=== PATIENT | female | born 1965 | race Caucasian/White ===

== ENCOUNTER → 2023-11-30 09:47 | Outpatient (REF) | payer OTHER, SELFPAY | LOC: HWRAD 09:47 | PROVIDERS: ATTENDING PHYSICIAN Internal Medicine Cardiovascular Disease; FAMILY PHYSICIAN Family Medicine | DX: R00.2 Palpitations (principal); E05.90 Thyrotoxicosis, unspecified without thyrotoxic crisis or storm | CPT/HCPCS: 76536 ==

== ENCOUNTER → 2023-12-12 09:01 | Outpatient (REF) | payer OTHER, SELFPAY | LOC: HWRCS 09:01 | PROVIDERS: ATTENDING PHYSICIAN Internal Medicine Cardiovascular Disease; FAMILY PHYSICIAN Family Medicine | DX: I47.10 Supraventricular tachycardia, unspecified (principal); R00.2 Palpitations; I34.0 Nonrheumatic mitral (valve) insufficiency | CPT/HCPCS: 93306 ==

== ENCOUNTER 2024-08-27 12:39 | Emergency (ER) | payer OTHER, SELFPAY ==
[2024-08-27 12:45] VITALS: BP 163/83
--- NOTE | 2024-08-27 12:49 | ED.GENMED ---
ED Provider Triage
<Darrel Galicia PA-C - Last Filed: 08/27/24 12:50>
-
Patient seen by provider in Triage?: Seen in Triage
Attestation: A medical screening examination has been initiated by a qualified medical provider. Based on the assessment performed at this time, it has been determined that an emergent medical condition may exist and the patient has been informed
that further medical evaluation and possible additional diagnostic testing may be needed.
HPI: 59-year-old female presents for evaluation of central chest pain that began at 9 AM today. Nonpleuritic and nonradiating. Feels lightheaded. Was seated at her desk at work when the symptoms began. No palliating or provoking symptoms. Has
never had similar pain. No family history of coronary disease, non-smoker, no history of hypertension or hyperlipidemia. Follows with [facility] cardiology for possible heart arrhythmia in the past
GENERAL: Alert , in no apparent distress
EYE: No visual abnormalities.
NECK: Trachea midline
ENT: No visible abnormalities.
LUNGS: No acute respiratory distress
NEUROLOGICAL: Alert and oriented
SKIN: Skin intact. No visible changes.
MUSCULOSKELETAL: Moving extremities normally
PSYCH: Normal and appropriate interaction.
This is a medical evaluation conducted in person to initiate diagnostic evaluation and provide initial therapeutics. Please see further documentation by the treating clinician.
History of Present Illness
<Darrel Galicia PA-C - Last Filed: 08/27/24 12:50>
General
Chief Complaint: Chest Pain
Time Seen by Provider: 08/27/24 13:38
<Dariel Rehman DO - Last Filed: 08/27/24 14:19>
General
Source: patient
Exam Limitations: none
History of Present Illness
History of Present Illness:
See MDM
Past History
<Darrel Galicia PA-C - Last Filed: 08/27/24 12:50>
Past History
ED Past Medical History: Arrthythmia and Psychiatric
ED Past Surgical History: None
Social History
Tobacco: Non-smoker
Alcohol: None
Personal:
Living: with family
Employment: Employed
Family History
Family History: Other
Phy Exam
<Dariel Rehman, DO - Last Filed: 08/27/24 14:19>
Physical Exam
Physical Exam:
See MDM
Scores
<Dariel Rehman, DO - Last Filed: 08/27/24 14:19>
Heart Score for Chest Pain Patients
STEMI patient?: No
History: Slightly or Non-Suspicious
ECG: Nonspecific Repolarization
Age: >45 - <65 years
Risk Factors: No Risk Factors
Troponin: </= Normal Limit
Heart Score for Chest Pain Patients: 2
Heart Score Risk: 2.5% MACE over next 6 weeks
Course
<Darrel Galicia PAAries - Last Filed: 08/27/24 12:50>
Orders/Labs/Results
Orders:
Orders
08/27/24 12:39
Electrocardiogram (*1) Urgent
Reason for Study: Chest Pain
EKG- Treatment ONCE
08/27/24 12:49
CR Chest - 2 Views Urgent
Comment:
Reason For Exam: chest pain
08/27/24 13:01
Complete Blood Count/With Diff Urgent
Comprehensive Metabolic Panel Urgent
Troponin I Urgent
Abnormal Lab Results
08/27/24
13:01
Total Protein 8.3 H g/dl
(6.3-8.2)
Albumin 5.2 H g/dl
(3.5-5.0)
08/27/24 13:01
08/27/24 13:01
Vital Signs
Initial and Last Documented VS:
Initial Vital Signs
Temp Pulse Resp BP Pulse Ox
98.4 F 88 16 163/ 100
08/27/24 12:45 08/27/24 12:45 08/27/24 12:45 08/27/24 12:45 08/27/24 12:45
Last Documented Vital Signs
Temp Pulse Resp BP Pulse Ox
98.4 F 88 16 163 100
08/27/24 12:45 08/27/24 12:45 08/27/24 12:45 08/27/24 12:45 08/27/24 12:45
<Dariel Rehman, DO - Last Filed: 08/27/24 14:19>
Orders/Labs/Results
Orders:
Orders
08/27/24 12:39
Electrocardiogram (*1) Urgent
Reason for Study: Chest Pain
EKG- Treatment ONCE
08/27/24 12:49
CR Chest - 2 Views Urgent
Comment:
Reason For Exam: chest pain
08/27/24 13:01
Complete Blood Count/With Diff Urgent
Comprehensive Metabolic Panel Urgent
Troponin I Urgent
Abnormal Lab Results
08/27/24
13:01
Total Protein 8.3 H g/dl
(6.3-8.2)
Albumin 5.2 H g/dl
(3.5-5.0)
08/27/24 13:01
08/27/24 13:01
Vital Signs
Initial and Last Documented VS:
Initial Vital Signs
Temp Pulse Resp BP Pulse Ox
98.4 F 88 16 163/ 100
08/27/24 12:45 08/27/24 12:45 08/27/24 12:45 08/27/24 12:45 08/27/24 12:45
Last Documented Vital Signs
Temp Pulse Resp BP Pulse Ox
98.4 F 88 16 163/83 100
08/27/24 12:45 08/27/24 12:45 08/27/24 12:45 08/27/24 12:45 08/27/24 12:45
<Dariel Rehman, DO - Last Filed: 08/27/24 14:19>
MDM/Problems Addressed
Differential Diagnosis Includes:
HPI and MDM Narrative:
59-year-old female presenting for evaluation of central chest pain. She noted the pain around 9 AM while she was working. Patient states she was standing when this happened. She then felt pressure in both sides of her chest. She has had issues
like this in the past that self resolved. Because this reoccurred, patient decided to go to the emergency department for evaluation. Patient states symptoms are improving without intervention.
Patient denies any recent travel or any swollen or painful legs.
Patient acknowledges that symptoms are not worse when she walks. She has followed up with cardiology Dr. Wilkins in the past due to an EKG that showed T wave inversions laterally. Patient states she has had a negative workup. EKG performed today
shows no changes from her prior. Blood work was performed showing normal troponin. Chest x-ray clear.
I did discuss with patient that her symptoms are likely noncardiac but discussed outpatient follow-up. Will place on cardiac callback tracker
I discussed with patient that this could be an undiagnosed cardiac arrhythmia. She states that her aerographer had reference the same concern. Discussed talking to cardiology about another Holter monitor
Physical exam
General: Well appearing and non-toxic
HEENT: protecting airway
Neck: appears supple
CV: No evidence of cyanosis. Regular rate and rhythm
Resp: No accessory muscle use. Lungs clear
Abd: Non-distended
Extremities: No deformities
Neuro: alert
Psych: Normal affect
Skin: Intact
Problems Addressed including Acute and Chronic Conditions affecting care:
1. Nonexertional chest pain
Acuity: acute
Prognosis: stable
Details: Troponin negative. Symptoms resolving on their own. Chest x-ray clear. Discussed likely noncardiac chest pain
Differential Diagnosis (but not limited to): Noncardiac chest pain, pneumothorax, pleurisy
Testing considered: D-dimer but she is neither tachycardic, nor hypoxic or has any evidence to suggest DVT
Drug therapy (if applicable): OTC meds, please see d/c instruction regarding Rx drugs
Amount and/or Complexity of Data Reviewed
Clinical info obtained from: Patient
External data reviewed: N/A
Labs I independently reviewed (but not limited to): Troponin normal
Radiology: N/A
Pulse Ox: not hypoxic
EKG independently reviewed: Sinus rhythm, normal axis, mild ST depressions laterally
Returned Goods Inspector: N/A
Critical Care: N/A
Risk of Complication:
Social Determinants of health: Good social support
Discussed with other providers: N/A
Escalation of Care includes Admit/Obs: After being observed in the Emergency Department, pt stable for discharge.
Occasional wrong word or 'sound a like' substitutions may have occurred due to the inherent limitations of voice recognition software. Read the chart carefully and recognize, using context, where substitutions have occurred.
<Dariel Rehman DO - Last Filed: 08/27/24 14:19>
*Critical Care Note
Total Time (30-74mins, 75-104mins- exclusive of procedures): Not Applicable
ED Attending Note
<Darrel Galicia PA-C - Last Filed: 08/27/24 12:50>
-
Portions of this chart may have been created with voice recognition software.� Occasional wrong word or��sound alike� substitutions may have occurred due to the inherent limitations of voice recognition software.
Discharge Plan
Departure
Patient Disposition: Home (Routine Discharge)
Date of Disposition: 08/27/24
Time of Disposition: 14:13
Patient with high blood pressure during this ER visit?: Yes
Discharge Problem:
Chest pressure
Instructions: Chest Pain DCA Follow Up, BLOOD PRESSURE
Prescriptions:
No Action
Multiple Vitamins
PO DAILY
pantoprazole 40 MG tablet,delayed release (DR/EC)
40 mg PO DAILY Qty: 10 0RF
Referrals:
Amber Mata MD [Family Provider] -
Activity Restrictions/Additional Instructions:
Please return for any worsening symptoms.
You may return at any time if you have further concerns.
Please follow up with your doctor at the first available appointment, preferably this week.
As we discussed, it is not clear what is causing your symptoms.
You were placed on the cardiac callback tracker. Someone from their office should call you in the next few days. If you do not hear from them in the next few days, please give them a call.
Thank you for choosing [facility].
Interventions
Interventions:
*Risk Screen - Suicide Last Done: 08/27/24 12:45
*General Assessment Last Done: 08/27/24 12:45
*Neglect/Abuse Screening Last Done: 08/27/24 12:45
*ED COVID-19 Vaccine History Last Done: 08/27/24 13:39
ED- Cardiac Assessment Last Done: 08/27/24 13:39
Discharge Date and Time
Print Language: BANGLADESHI
[2024-08-27 13:16] LABS: % Basophils 0.4 % (0-2); % Immature Granulocytes 0.1 % (0-0.5); % Lymphocytes 27.1 % (20.5-51.1); % Monocytes 8.2 % (1.7-9.3); % Neutrophils 63.2 % (42.2-75.2); Absolute Eosinophils 0.1 10^3/uL (0-0.7); Absolute Lymphocytes 2.1 10^3/uL (1.2-3.4); Absolute Monocytes 0.6 10^3/uL (0.1-0.6); Absolute Neutrophils 4.9 10^3/uL (1.4-6.5); Hematocrit 41.8 % (37.0-47.0); Hemoglobin 13.8 g/dL (12.0-16.0); Mean Corpuscular Hgb 29.8 pg (27.0-31.0); Mean Corpuscular Volume 90.3 fL (81.0-99.0); Mean Platelet Volume 9.7 fL (7.4-10.4); Nucleated Red Blood Cells % 0 %; Platelet Count 244 10^3/uL (130-400); Red Blood Cell Count 4.63 10^6/uL (4.20-5.40); Red Cell Dist. Width 13.9 % (11.5-14.5); White Blood Cell Count 7.8 10^3/uL (4.8-10.8)
[2024-08-27 13:27] LABS: ALT (SGPT) 21 U/L (0-35); AST (SGOT) 28 U/L (14-36); Albumin 5.2 g/dl (3.5-5.0); Alkaline Phosphatase 68 U/L (38-126); Blood Urea Nitrogen 16 mg/dl (7-17); Calcium 9.5 mg/dl (8.4-10.2); Carbon Dioxide 25 mmol/L (22-30); Chloride 103 mmol/L (98-107); Glucose 94 mg/dl (70-99); Sodium 138 mmol/L (135-145); Total Bilirubin 0.7 mg/dl (0.2-1.3); Total Protein 8.3 g/dl (6.3-8.2); eGFR > 60.00
[2024-08-27 13:38] LABS: Troponin I < 0.012 ng/ml
[2024-08-27 14:20] VITALS: BP 154/87
== END 2024-08-27 14:20 | disposition home or self-care (01) ==
LOC: EMR 12:39
PROVIDERS: Physician Assistant; EMERGENCY PHYSICIAN Student in an Organized Health Care Education/Training Program; FAMILY PHYSICIAN Family Medicine
DX: R07.89 Other chest pain (principal)
CPT/HCPCS: 99285; 71046; 80053; 84484; 85025; 93005

== ENCOUNTER → 2024-09-18 08:21 | Outpatient (REF) | payer OTHER, SELFPAY | LOC: RCS 08:21 | PROVIDERS: ATTENDING PHYSICIAN Physician Assistant; FAMILY PHYSICIAN Family Medicine | DX: I47.10 Supraventricular tachycardia, unspecified (principal); R07.89 Other chest pain; I47.19 Other supraventricular tachycardia | CPT/HCPCS: 93017; 93350 ==